=== PATIENT | male | born 1995 | race Caucasian/White ===

== ENCOUNTER 2016-07-12 13:48 | Emergency (ER) | payer MEDICAID ==
[~2016-07-12] VITALS: Ht 182.9 cm; Wt 113.4 kg
[2016-07-12 14:01] VITALS: BP 162/113
--- NOTE | 2016-07-12 14:38 | NUR ---
Patient to bed 07.
--- NOTE | 2016-07-12 15:14 | NUR ---
ETTA QUINTANILLA) EVALUATING PATIENT AT BEDSIDE.
[2016-07-12] MEDS ORDERED: DEXAMETHASONE 4 MG/ML VIAL PO ONE (15:35)
[2016-07-12] MEDS ORDERED: KETOROLAC 30 MG/ML VIAL IM ONE (15:35)
[2016-07-12] MEDS ORDERED: ACETAMINOPHEN EXTRA STRENGTH 500 MG TAB PO ONE (15:35)
--- NOTE | 2016-07-12 15:35 | NUR ---
21/M BIB MOTHER C/O PT PRESENTS TO ER FOR EVALUTION OF HEADACHE. PT STATES HE HASN'T BEEN TAKING HIS LEVOTHYROXINE IN SEVERAL MONTHS, AND NOW HAS INTERMITTENT BOUTS OF DIZZINESS, HEADACHES, AND GENERAL MALAISE FOR 1 WEEK.
--- NOTE | 2016-07-12 17:01 | NUR ---
Patient discharged with v/s stable. Written and verbal after care instructions given and explained. Patient alert, oriented and verbalized understanding of instructions. Ambulatory with steady gait. All questions addressed prior to discharge. ID band removed. Patient advised to follow up with PMD. Rx of MOTRIN, CODEINE/PROMETHAZINE, KEFLEX given. Patient educated on indication of medication including possible reaction and side effects. Opportunity to ask questions provided and answered.
[2016-07-12 17:08] VITALS: BP 126/68
== END 2016-07-12 17:01 | disposition home or self-care (01) ==
LOC: MED 13:53
DX: J03.90 Acute tonsillitis, unspecified (principal); R03.0 Elevated blood-pressure reading, without diagnosis of hypertension; E03.9 Hypothyroidism, unspecified
CPT/HCPCS: 96372; 99283; J1100; J1885

== ENCOUNTER 2016-08-20 21:59 | Emergency (ER) | payer MEDICAID ==
[~2016-08-20] VITALS: Ht 185.4 cm; Wt 136.1 kg
[2016-08-20 23:10] VITALS: BP 136/76
--- NOTE | 2016-08-20 23:26 | NUR ---
CALLED BY [employer];NO ANSWER
--- NOTE | 2016-08-21 00:58 | NUR ---
Claudia terrell in ED - 08/21/16 at 0102 by MARY PATIENT LEFT WITHOUT BEING SEEN BY DR. CARTER. NO FURTHER CARE PROVIDED FOR PATIENT.
--- NOTE | 2016-08-21 01:00 | NUR ---
PER MD DR CARTER, PT NOSE IS BROKEN. PT WAS CALLED AT [phone]. PT WILL COME BACK TO ER
--- NOTE | 2016-08-21 01:40 | NUR ---
TO ER BED 2
--- NOTE | 2016-08-21 01:45 | NUR ---
PT IS 21/M BIB COUSIN TO ED WITH C/O NOSE PAIN, S/P FURNITURE FELL ON NOSE WHILE MOVING FURNITURE AROUND 1800 TODAY. PT STATES NOSE WAS BLEEDING. PT WANTS TO KNOW IF NOSE IS BROKEN PT STATES MED HX:HYPOTHYROID. DENIES N/V/D; SKIN IS PINK/WARM/DRY; AAOX4 WITH EVEN AND STEADY GAIT; LUNGS CLEAR BL; HR EVEN AND REGULAR; PT DENIES ANY FEVER, CP, SOB, OR COUGH AT THIS TIME; PATIENT STATES PAIN OF 10/10 AT THIS TIME; VSS; PATIENT POSITIONED FOR COMFORT; HOB ELEVATED; BEDRAILS UP X2; BED DOWN. ER MD MADE AWARE OF PT STATUS.
--- NOTE | 2016-08-21 01:50 | NUR ---
Patient being evaluated by physician at bedside.
[2016-08-21] MEDS ORDERED: HYDROcodone/APAP 5/325 MG 1 TAB TAB PO ONE (01:55)
[2016-08-21 02:38] VITALS: BP 122/69
--- NOTE | 2016-08-21 02:38 | NUR ---
Patient discharged with v/s stable. Written and verbal after care instructions given and explained. Patient alert, oriented and verbalized understanding of instructions. Ambulatory with steady gait. All questions addressed prior to discharge. ID band removed. Patient advised to follow up with PMD. Rx of TYLENOL #3 AND NAPROSYN 500MG given. Patient educated on indication of medication including possible reaction and side effects. Opportunity to ask questions provided and answered.
== END 2016-08-21 02:38 | disposition home or self-care (01) ==
LOC: MED 21:59
DX: S02.2XXA Fracture of nasal bones, initial encounter for closed fracture (principal); S00.83XA Contusion of other part of head, initial encounter; E03.9 Hypothyroidism, unspecified; W22.8XXA Striking against or struck by other objects, initial encounter; Y93.89 Activity, other specified; Y92.89 Other specified places as the place of occurrence of the external cause; Y99.8 Other external cause status